=== PATIENT | male | born 1955 | race Two or more races ===

== ENCOUNTER 2023-06-26 11:15 | Emergency (ER) | payer OTHER ==
[~2023-06-26] VITALS: Ht 182.9 cm; Wt 85.7 kg
[2023-06-26] MEDS ORDERED: NEURONTIN300 MG PO (11:35)
[2023-06-26] MEDS ORDERED: TAMS0.4C PO (11:35)
[2023-06-26] MEDS ORDERED: SIMVASTATIN5 MG PO (11:36)
== END 2023-06-26 15:32 | disposition home or self-care (01) ==
LOC: ER 11:16
DX: M51.26 Other intervertebral disc displacement, lumbar region (principal); F32.A Depression, unspecified
CPT/HCPCS: 72100; 96372; 99283; J1885; J2360